=== PATIENT | male | born 1995 | race Caucasian/White ===

== ENCOUNTER 2024-11-19 11:36 | Outpatient (OUT) | payer OTHER, SELFPAY ==
--- OUTSIDE RECORDS SUMMARY | 2024-11-19 11:44 | XMS_ITS | Patient Health Record ---
Author Organization [facility] [place] Address [address] [place] [address] Care Team Providers Care Winter Intern Name Role Phone Kasi Olivares Primary Care Provider Allergies No Known Allergies Reason For Referral No Information Medications Medication SIG (Take, Route, Frequency, Duration) Notes Start Date End Date Status Triamcinolone Acetonide 0.1 % 1 application Externally bid 11/19/2024 Active Diclofenac Sodium 75 MG 1 tablet as need ed Orally Twice a day; Duration: 30 days 11/19/2024 Active Ventolin HFA 108 (90 Base) MCG/ACT 2 puff as needed Inhalation every 4 hrs; Duration: 30 07/08/2023 Active Breo Ellipta 100-25 MCG/ACT 1 puff Inhal ation Once a day; Duration: 30 07/08/2023 Active tiZANidine HCl 4 MG 2 tabs Orally qhs; Duration: 30 days 11/19/2024 Active Social History Tobacco Use: Social History Observation Description Date Details (start date - stop date) Never Smoker NA - NA Tobacco Control (Standard) Question Answer Notes Tobacco use: Nonsmoker AUDIT-C (Standard) Question Answer Notes Did you have a drink containing alcohol in the p ast year? No Points 0 Interpretation Negative Problems Problem Type SNOMED Code ICD Code Onset Dates Problem Status W/U Status Risk Notes Problem Lumbar radiculopathy (987374044) Lumbar radiculopathy (M54.16) Active confirmed Vital Signs Blood pressure diastolic 80 mm Hg 11/19/2024 Height 70 in 11/19/2024 Blood pressure systolic 132 mm Hg 11/19/2024 Weight 218.2 lbs 11/19/2024 BMI 31.31 kg/m2 11/19/2024 Encounters Encounter Location Date Provider Diagnosis [facility] [address] [place] [address] 11/19/2024 Kasi Olivares Lumbar radiculopathy M54.16 Assessments Encounter Date Diagnosis (ICD Code) Assessment Notes Treatment Notes Treatment Clinical Notes Section Notes 11/19/2024 Lumbar radiculopathy (ICD-10 - M54.16) 11/19/2024 Other Recommended to rest and use a heating pad on the area. Take NSAIDs for pain as needed Plan Of Treatment Pending Test Test Name Order Date XR Chest PA and Lateral (Routine CXR) * 07/08/2023 XR LSPINE MIN 4 VIEWS 11/19/2024 Insurance Providers Payer Name Payer Address Payer Phone Subscriber Number Group Number Insured Name Patient Relationship to Insured Coverage Start Date Coverage End Date O [facility] [address] [address] [place] [phone] [id number] Malini Zavala Spouse - patient is the spouse of the insured Medications Administered Medication Instructions Date of Administration Dosage Notes Ketorolac Tromethamine 11/19/2024 60 mg Orphenadrine Citrate 11/19/2024 60 mg Triamcinolone 40 mg/ml 11/19/2024 120 mg
--- OUTSIDE RECORDS SUMMARY | 2024-11-19 11:44 | XMS_ITS | Clinical Summary ---
Author Organization [facility] Address [address] [place], [place] [id number] Care Team Providers Care Special Education Science Teacher Name Role Phone Unavailable Primary Care Provider Unavailabl e Social History Tobacco Use Types Packs/Day Years Used Date Smoking Tobacco: Never Assessed Area Deprivation Index Answer Date Rahul rded National Score (1-100), lower number is lower ri sk Not on file 02/14/2020 State Score (1-10), lower number is lower risk N ot on file 02/14/2020 Data from: https://www.neighborhoodatlas.medicine.[facility].edu/. Last address used for calculation Not on file 02/14/2020 Sex and Gender Information Value Date Recorded Sex Assigned at Not on file Legal Sex Male 4:10 PM EST Gender Identity Not on file Sexual Orientation Not on file Plan of Treatment Not on file Insurance O [employer]
--- NOTE | 2024-11-19 11:46 | XR_ITS ---
The [address] [address] Patient Name: MONICO DELGADO MRN: [id number] date: 1995 Sex: M Assigned Patient Location: [facility] Current Patient Location: [facility] Accession/Order Number: [id number] Exam Date: 11/19/2024 11:52 Report Date: 11/19/2024 12:44 At the request of: DEBI MUNGUIA MD Procedure: XR lumbar spine min 4V LUMBAR SPINE -4 views: CLINICAL HISTORY: Low back pain after cutting firewood M54.16 oral COMPARISON: CT 12/23/2020 AP, lateral and both oblique views of the lumbosacral junction were obtained. There is no evidence of fracture. Alignment is maintained on the lateral view. And slight disc space narrowing at the lumbosacral junction.. There is minimal endplate spurring. Facet sclerosis. No pars defect is identified. The sacroiliac joints are maintained and show minor sclerosis. There are no paraspinal soft tissue abnormalities. XR/XR lumbar spine min 4V IMPRESSION: MINIMAL DEGENERATIVE CHANGE. NO ACUTE BONY FINDINGS.. Impression dictated by: Елена Espinal M.D. 11/19/2024 12:44 PM Dictation Location: [place] [address] Electronically authenticated by: [id number] Y Date: 11/19/2024 12:44
== END 2024-11-19 11:37 | disposition home or self-care (01) ==
LOC: RAD 11:41
PROVIDERS: PCP Family Medicine; Visit Provider Family Medicine
DX: M54.16 Radiculopathy, lumbar region (principal); M51.369 Other intervertebral disc degeneration, lumbar region without mention of lumbar back pain or lower extremity pain
CPT/HCPCS: 72110